=== PATIENT | female | born 1975 | race Caucasian/White ===

== ENCOUNTER → 2019-03-03 11:55 | Outpatient (CLI) | payer OTHER, SELFPAY ==
--- NOTE | 2019-03-03 | DI.MG.S_ITS ---
BILATERAL DIGITAL SCREENING MAMMOGRAM 3D/2D WITH CAD: 03/03/2019 CLINICAL: Routine screening. Family history of breast cancer. Comparison is made to exams dated: 01/14/2018 mammogram, 12/27/2016 mammogram, and 12/21/2015 mammogram - [facility]. The tissue of both breasts is heterogeneously dense. This may lower the sensitivity of mammography. Current study was also evaluated with a Computer Aided Detection (CAD) system. No significant masses, calcifications, or other findings are seen in either breast. There has been no significant interval change. IMPRESSION: NEGATIVE There is no mammographic evidence of malignancy. A 1 year screening mammogram is recommended. This exam was interpreted at Station ID: [id number]. NOTE: For mammograms, a report in lay terms will be sent to the patient. Approximately 15% of breast malignancies will not be visualized mammographically. In the management of a palpable breast mass, a negative mammogram must not discourage biopsy of a clinically suspicious lesion. Electronically Signed By: Veronica cunningham/mario:03/03/2019 18:04:24 letter sent: Normal Exam ACR BI-RADS Category 1: Negative 3341F
== END ==
PROVIDERS: PCP Family Medicine; Visit Provider Family Medicine
DX: Z12.31 Encounter for screening mammogram for malignant neoplasm of breast (principal); Z80.3 Family history of malignant neoplasm of breast
CPT/HCPCS: 77063; 77067

== ENCOUNTER → 2019-03-05 09:09 | Outpatient (CLI) | payer OTHER, SELFPAY ==
--- NOTE | 2019-03-05 09:00 | DI.ECHO.S_ITS ---
Echocardiogram Report + + :Name: MARCELLO SUAZO Study Date: 03/05/2019 Height: 62 in : :[facility] Weight: 123 lb : : Gender: Female BSA: 1.6 m2 : :: 1975 Age: 43 yrs BP: 122/80 mmHg: :Reason For Study: Chemotherapy F/U (ICD Code V67.2) : : Performed By: Tracy Hale : :Referring: RAUDEL ASENCIO : + + Interpretation Summary Normal sinus rhythm. Normal LV size and wall thickness. There is mild cardiomyopathy. Ejection fraction is 45-50 percent. Normal valves. Normal chamber sizes. No prior study available for comparison. Procedure: A two-dimensional transthoracic echocardiogram with color flow and Doppler was performed. The study quality was technically adequate. Comparison is made with the echocardiogram of 03-21-14. The patient was in normal sinus rhythm during the exam. Left Ventricle: The left ventricle is normal in size. There is normal left ventricular wall thickness. The ejection fraction is estimated to be 45-50%. Diastolic parameters suggest probable normal left ventricular diastolic function and normal filling pressures. Right Ventricle: The right ventricle grossly appears normal in size with probable normal systolic function. Atria: The left atrial size is normal. Right atrial size is normal. The interatrial septum is intact with no evidence for an atrial septal defect. Mitral Valve: The mitral valve is grossly normal. There is trace mitral regurgitation. Aortic Valve: The aortic valve is trileaflet. The aortic valve opens well. No aortic regurgitation is present. Tricuspid Valve: The tricuspid valve is normal in structure and function. There is a trace or physiologic amount of tricuspid regurgitation. Pulmonic Valve: The pulmonic valve is not well visualized. Great Vessels: The aortic root is normal size. The dimensions of the ascending aorta are normal. The IVC is of normal diameter and collapses greater than 50% with a sniff. This suggests a low right atrial pressure of 3 mm Hg. Pericardium/ Pleura There is no pericardial effusion. There is no pleural effusion. MMode/2D Measurements & Calculations LVIDd: 4.6 cm Ao root diam: 2.9 cm LVIDs: 3.7 cm Aortic Jxn: 2.3 cm FS: 20.6 % asc Aorta Diam: 2.5 cm EPSS: 1.4 cm IVSd: 0.76 cm LVPWd: 0.70 cm LV deng. diameter/BSA (cm/m^2): 3.0 LV sys. diameter/BSA (cm/m^2): 2.4 LA dimension: 3.1 cm RA long axis: 4.3 cm LA A2 area: 16.8 cm2 RA area: 13.7 cm2 LA A4 area: 14.0 cm2 RA vol: 37.4 ml LA length (vol): 4.8 cm RA : 24.1 ml/m2 LA vol: 41.2 ml IVC diam: 2.1 cm LA vol index: 26.5 ml/m2 RVDd major: 5.1 cm RVD1 (basal): 2.9 cm RVD2 (mid): 2.2 cm Doppler Measurements & Calculations Ao V2 max: 118.4 cm/sec MV E max rocky: 67.2 cm/sec Ao V2 mean: 82.5 cm/sec MV A max rocky: 68.8 cm/sec Ao max P.6 mmHg MV E/A: 0.98 Ao mean P.0 mmHg Med Peak E' Rocky: 7.8 cm/sec Ao V2 VTI: 28.4 cm E/E' med: 8.6 Lat Peak E' Rocky: 9.2 cm/sec E/E' lat: 7.3 E/e' average: 8.0 MV dec time: 0.27 sec MV P1/2t: 79.8 msec TR max rocky: 167.5 cm/sec MV P1/2t max rocky: 68.4 cm/sec TR max P.2 mmHg MVA(P1/2t): 2.8 cm2 PA V2 max: 51.6 cm/sec PA V2 mean: 37.1 cm/sec PA mean P.60 mmHg PA Accel Time: 0.26 sec _ Electronically signed by: Latia Pennington M.D. on Reading Physician:03/05/2019 10:57 AM
== END ==
PROVIDERS: PCP Family Medicine; Visit Provider Family Medicine
DX: C85.90 Non-Hodgkin lymphoma, unspecified, unspecified site (principal); C83.39 Diffuse large B-cell lymphoma, extranodal and solid organ sites; M85.851 Other specified disorders of bone density and structure, right thigh; Z78.0 Asymptomatic menopausal state; Z92.21 Personal history of antineoplastic chemotherapy; Z87.891 Personal history of nicotine dependence
CPT/HCPCS: 77080; 93306

== ENCOUNTER → 2019-03-26 09:11 | Outpatient (CLI) | payer OTHER, SELFPAY ==
--- NOTE | 2019-03-26 | DI.US.S_ITS ---
PROCEDURE: US THYROID INDICATIONS: THYROID NODULE TECHNIQUE: Real-time scanning was performed of the thyroid gland, with image documentation. COMPARISON: Outside Facility, , US SOFT TISSUE HEAD OR NECK, 04/13/2018, 10:51. [facility], US, THYROID, 07/01/2017, 10:02. FINDINGS: Right: Thyroid lobe measures 5.0 x 1.6 x 1.4 cm, and is homogeneous in echotexture. Left: Thyroid lobe measures 6.1 x 3.1 x 7 cm, and is homogenous in echotexture. Isthmus: 3.0 mm thick. Nodule number: 1 Location: Right mid to superior Size: 0.5 x 0.3 x 0.4 cm. Composition: Predominantly solid Echogenicity: Hypoechoic Shape: wider than tall. Margins: Smooth Echogenic foci: None Total points: 4 ACR TI-RADS category: Moderately suspicious Nodule number: 2 Location: Right mid lateral Size: 0.5 0.3 x 0.3 cm. Composition: Solid Echogenicity: Hypoechoic Shape: wider than tall. Margins: Smooth Echogenic foci: None Total points: 4 ACR TI-RADS category: Moderately suspicious Nodule number: 3 Location: Right mid lateral Size: 1.1 x 1.0 0.7 cm. Composition: Predominantly solid Echogenicity: Isoechoic Shape: Wider than tall Margins: Smooth Echogenic foci: Punctate internal echogenic foci. Total points: 6 ACR TI-RADS category: Moderately suspicious Nodule number: 4 Location: Right mid Size: 1.0 x 5.6 x 1.0 cm. Composition: Solid Echogenicity: Hypoechoic Shape: wider than tall. Margins: Smooth Echogenic foci: None Total points: 4 ACR TI-RADS category: Moderately suspicious Nodule number: 5 Location: Left lobe Size: 5.5 x 3.0 x 3.4 cm. Composition: Solid Echogenicity: Heterogeneous Shape: wider than tall. Margins: Lobulated Echogenic foci: Internal punctate echogenic foci Total points: 7 ACR TI-RADS category: Highly suspicious IMPRESSION: Bilateral thyroid nodules as above. Nodule # 5 has increased in size since the last outside ultrasound. Recommend sonographically directed fine needle aspiration biopsy. Recommend continued followup of the additional nodules as detailed below. ACR TI-RADS definitions and recommendations: TI-RADS 1 (benign): 0 points. FNA not needed. TI-RADS 2 (not suspicious): 2 points. FNA not needed. TI-RADS 3 (mildly suspicious): 3 points. * FNA if 2.5 cm or larger, follow up if 1.5 cm or larger (at 1, 3, and 5 years). TI-RADS 4 (moderately suspicious): 4-6 points. * FNA if 1.5 cm or larger, follow up if 1 cm or larger (at 1, 2, 3, and 5 years). TI-RADS 5 (highly suspicious): 7 points or more. * FNA if 1 cm or larger, follow up if 0.5 cm or larger (every year for 5 years). Dictated by: Modesto Pollard [facility] Interpreted: Kedar Murry MD on 03/26/2019 at 12:19 Approved by: Kedar Murry M.D. on 03/26/2019 at 23:45
== END ==
PROVIDERS: PCP Family Medicine; Visit Provider Family Medicine
DX: E04.2 Nontoxic multinodular goiter (principal)
CPT/HCPCS: 76536

== ENCOUNTER → 2019-04-19 09:36 | Outpatient (CLI) | payer OTHER, SELFPAY ==
--- NOTE | 2019-04-19 | DI.US.S_ITS ---
PROCEDURE: US FINE NEEDLE ASPIRATION INDICATIONS: THYROID NODULE TECHNIQUE: The indications, alternatives, benefits, risks, and complications of the procedure were explained to the patient. Written informed consent was obtained and placed in the chart. The thyroid region was examined sonographically and a site was chosen for ultrasound guided percutaneous sampling. The skin was prepared and draped in the usual fashion, and anesthetized with 1% lidocaine infiltrated from the skin down to the thyroid gland. Multiple passes were then performed, with contents emptied into an appropriate pathology specimen container. A bandage was applied to the area of access at completion of the study. COMPARISON: None. FINDINGS: Location(s) of lesion(s) sampled: Left lobe [place]: 25 and 22 gauge hypodermic needles. Number of passes: 6 Medications: 1% lidocaine for local anaesthesia. Complications: None. IMPRESSION: Successful ultrasound-guided thyroid nodule fine needle aspiration, with cytology results pending. Please see chart below for management recommendations based on cytology results. [facility] ReportingRecommendationsNon-diagnostic* Repeat US-guided FNA, with on-site cytology evaluation if possible. * Repeated non-diagnostic nodules without high suspicion US features: close observation vs surgical consult. * Consider surgery if nodule has high suspicion US features, grows >20% in 2 dimensions on followup, or patient has clinical risk factors for malignancy. Benign* If nodule has high suspicion US features: repeat US and FNA within 12 months. * If nodule has low to intermediate suspicion US features: repeat US at 12-24 months. If nodule grows (20% increase in at least 2 dimensions, with minimal increase of 2 mm or >50% change in volume), or development of new suspicious US features, then repeat FNA or continue followup. * If nodule has very low suspicion US features: followup US at >24 months. Atypia of undetermined significance, follicular lesion of undetermined significanceRepeat FNA, molecular testing, followup US, or surgical consult.Follicular neoplasm, suspicious for follicular neoplasmSurgical consult; also consider molecular testing. Suspicious for malignancySurgical consult.MalignantSurgical consult. Dictated by: Biju Michelle M.D. on 04/19/2019 at 17:15 Approved by: Biju Michelle M.D. on 04/19/2019 at 17:15
--- NOTE | 2019-04-19 | PATH_ITS ---
Note [facility] Accession Number: [id number] TESTS RESULT FLAG UNITS REF RANGE LAB Clinician Provided Cytology Information No. of containers..01 ThinPrep Vial No. of containers..10 Previously Prepared Cytology Slide LEFT THYROID DIAGNOSIS: 02 LEFT THYROID BENIGN. BETHESDA CATEGORY II. SPECIMEN CONSISTS OF BENIGN FOLLICULAR CELLS, HEMOSIDERIN-LADEN MACROPHAGES, COLLOID, AND BLOOD. THIS PATTERN IS CONSISTENT WITH A BENIGN FOLLICULAR NODULE. Pathologist ICD10: 02 E04.1 01 NODULE NUMBER: 5 LOCATION: LEFT LOBE SIZE: 5.5 X 3.0 X 3.4 CM NODULE # 5 HAS INCREASED IN SIZE SINCE THE LAST OUTSIDE ULTRASOUND. RECOMMEND SONOGRPHICALLY DIRECT FINE NEEDLE ASPIRATION BIOPSY. 02 Flora Rosenbaum MD, Pathologist NPI- [id number] John Molina, Employment Officer ([facility]) 01 30 CC, PINK, CLEAR RECEIVED: 5 ALCOHOL FIXED AND 5 QUICK STAINED SLIDES WITH 1 RNA VIAL FOR FURTHER TESTING. /VDU FLAG LEGEND: L-Low Normal,H-High Normal,LL-Alert Low,HH-Alert High <-Panic Low,>-Panic High,A-Abnormal,AA-Critical Abnormal Performed at: 01 =Z [facility] [address] [address], [place] [address] Kaden Graves MD, 02 LWA [facility] [address] [place] [id number] Flora Rosenbaum MD, Performed at: [address] [address], [place], [place] [id number] MD Kaden Graves MD Phone: [phone]
== END ==
PROVIDERS: PCP Family Medicine; Visit Provider Family Medicine
DX: E04.1 Nontoxic single thyroid nodule (principal)
CPT/HCPCS: 10005

== ENCOUNTER → 2020-06-16 13:39 | Outpatient (CLI) | payer BC, SELFPAY ==
--- NOTE | 2020-06-16 13:50 | DI.MG.S_ITS ---
Patient Name: MARCELLO SUAZO date: 1975 Sex: F Attending Physician: Gonzalo Indications: Date: 06/16/2020 13:57 At the request of: RAUDEL ASENCIO Procedure: MM screening mammo BI BILATERAL DIGITAL SCREENING MAMMOGRAM 3D/2D WITH CAD: 06/16/2020 CLINICAL: Routine screening. Family history of breast cancer. Comparison is made to exams dated: 03/03/2019 mammogram, 01/14/2018 mammogram, and 12/27/2016 mammogram - [facility]. The tissue of both breasts is heterogeneously dense. This may lower the sensitivity of mammography. Current study was also evaluated with a Computer Aided Detection (CAD) system. No significant masses, calcifications, or other findings are seen in either breast. There has been no significant interval change. IMPRESSION: NEGATIVE There is no mammographic evidence of malignancy. A 1 year screening mammogram is recommended. This exam was interpreted at Station ID: [id number]. NOTE: For mammograms, a report in lay terms will be sent to the patient. Approximately 15% of breast malignancies will not be visualized mammographically. In the management of a palpable breast mass, a negative mammogram must not discourage biopsy of a clinically suspicious lesion. Electronically Signed By: Bijan bernard/mario:06/16/2020 14:12:56 letter sent: Normal Exam ACR BI-RADS Category 1: Negative 3341F
== END ==
PROVIDERS: PCP Family Medicine; Referring Provider Family Medicine; Visit Provider Family Medicine
DX: Z12.31 Encounter for screening mammogram for malignant neoplasm of breast (principal); Z80.3 Family history of malignant neoplasm of breast
CPT/HCPCS: 77063; 77067

== ENCOUNTER → 2020-12-14 10:27 | Outpatient (CLI) | payer BC, OTHER, SELFPAY ==
--- NOTE | 2020-12-14 | DI.RAD.S_ITS ---
PROCEDURE: XR HAND LT MIN 3V INDICATIONS: bilateral hand pain TECHNIQUE: 3 views of the hand(s) acquired. COMPARISON: None. FINDINGS: Bones: No fracture. Scattered degenerative subchondral sclerosis and spurring. Soft tissues: No suspicious soft tissue calcifications. Dystrophic calcification versus small loose body projects adjacent to the ulnar styloid. IMPRESSION: Mild degenerative changes. If the patient's pain or other symptoms persist, consider further evaluation with MRI Dictated by: Biju Michelle M.D. on 12/14/2020 at 11:41 Approved by: Biju Michelle M.D. on 12/14/2020 at 11:43
--- NOTE | 2020-12-14 | DI.RAD.S_ITS ---
PROCEDURE: XR HAND RT MIN 3V INDICATIONS: bilateral hand pain TECHNIQUE: 3 views of the hand(s) acquired. COMPARISON: None. FINDINGS: Bones: No fracture. 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 No definite marginal lucencies seen. Soft tissues: No suspicious soft tissue calcifications. IMPRESSION: Mild degenerative changes as above. Dictated by: Biju Michelle M.D. on 12/14/2020 at 11:39 Approved by: Biju Micehlle M.D. on 12/14/2020 at 11:41
== END ==
PROVIDERS: PCP Family Medicine; Referring Provider Family Medicine; Visit Provider Family Medicine
DX: M79.642 Pain in left hand (principal); M79.641 Pain in right hand
CPT/HCPCS: 73130

== ENCOUNTER 2021-03-20 13:40 | Day surgery (SDC) | payer BC, OTHER, SELFPAY ==
[2021-03-20] VITALS (8 sets, daily range): BP systolic 113–137; BP diastolic 73–91; PULSE 50–69; RESP 13–16; TEMP 36.2–37; O2SAT 92–100; BMI 24.5
--- NOTE | 2021-03-20 | PATH_ITS ---
[facility] Accession Number: [id number] . 01 Material submitted: . PART A: colon - COLON POLYPS AT 20CM X4 PART B: colon - COLON POLYP AT 5CM . 02 Diagnosis: A. Colon, Polyps at 20 cm x4, Biopsies: Hyperplastic polyps. . B. Colon, Polyp at 5 cm, Biopsy: Hyperplastic polyp. MRV 03/23/2021 1318 Local . 02 Electronically signed: . Flora Rosenbaum MD, Pathologist NPI- [id number] . 01 Gross description: . A. Received in formalin, labeled colon polyp at 20 cm and consists of four garcia-pink polyps ranging from 0.3-1.0 cm. The margins are inked blue. The larger polyps are bisected and the specimen is entirely submitted in cassette A1. B. Received in formalin, labeled colon polyp at 5 cm and consists of a 0.3 x 0.2 x 0.2 cm garcia-pink fragment of soft tissue which is entirely submitted in cassette B1. ([id number]) /MRV 03/21/2021 1031 Local . 02 Pathologist provided ICD-10: K63.5 . 02 CPT . 171960, [id number] Performed at: 01 [facility] [address], [place], [place] [id number] MD Kaden Graves MD Phone: [phone] Performed at: 02 [facility] [address] [place], [place] [id number] MD Flora Rosenbaum MD Phone: [phone]
[2021-03-20 14:06] LABS: COVID19 -Nasal RAPID Negative (Negative)
[2021-03-20] MEDS: SODIUM CHLORIDE 0.9% 1,000 ML 200 ML IV (14:32)
--- NOTE | 2021-03-20 14:41 | PM.PREOP ---
Pre-operative Note COVID-19 COVID-19 status: Negative Result date/Date tested (Pos, Neg/Pending): 03/20/21 Interval Note History & Physical reviewed/Exam performed by Physician: Yes Changes to H&P: No ASA Class (for procedural sedation): I
[2021-03-20] MEDS: MIDAZOLAM 5 MG/5 ML VIAL IV ×2 (14:53→15:36)
[2021-03-20] MEDS: fentaNYL 250 MCG/5 ML INJ IV (14:54)
--- NOTE | 2021-03-20 15:35 | PM.OP.ENDO ---
Operative Date/Time/Diagnoses Date of procedure: 03/20/21 Time of procedure: 15:35 Pre-op diagnosis: Rectal bleeding Post-op diagnosis: other (5 polyps in the rectum with stigmata of recent bleeding, all removed) Procedure & Clinicians Study performed: Colonoscopy Procedural sedation performed by the endoscopist Polypectomy with hot snare x 5 Same procedure as scheduled: Yes Indications: Rectal bleeding Surgeon: Pilar Gan Procedure Notes SCOAP/Timeout: Performed Procedure in detail: The patient was brought to the room and placed in left lateral decubitus position with all bony prominences padded. A time-out was performed and then the patient was given procedural sedation starting with 4 mg of Versed and 100 mcg of fentanyl. An additional 2 mg of Versed and 100 micro g of fentanyl were given during the rest of the procedure. Vitals were monitored throughout the procedure and remained stable. Once adequately sedated, the procedure was begun. A rectal exam was performed revealing no abnormalities. The colonoscope was then introduced to the rectum and advanced to the cecum in the usual fashion. The cecum was identified by the appendiceal orifice, the mucosal tri-fold, and the ileocecal valve. The scope was then retracted while rotating side to side and examining each mucosal fold. The patient had moderate diverticulosis, especially in the descending and sigmoid colon, and multiple inflammatory appearing polyps with stigmata of recent bleeding. Four polyps were removed from the 20 cm level in the rectum, each polyp was 5-10 mm, removed with hot snare, with good hemostasis. One smaller polyp was removed at 5 cm from the anal verge in the rectum, also with hot snare. At the conclusion of the procedure retroflexion was performed and small grade 2-3 internal hemorrhoids without stigmata of bleeding were seen. The scope was then withdrawn from the rectum the procedure was concluded. The patient tolerated the procedure well and was transferred to the PACU in stable condition. Scope withdrawal time: 19 Sedation minutes: 40 Findings: diverticulosis and polyp Specimen(s): other (Polyp x5) Complications: none Impression: Moderate diverticulosis, multiple inflammatory appearing polyps removed and sent for pathology Post-procedure Recommendations: High fiber diet and Other recommendation (Recommended follow-up will depend on the pathology results from the polyps that were removed) Follow up: as needed Disposition: PACU
== END 2021-03-20 16:35 | disposition home or self-care (01) ==
PROVIDERS: PCP Family Medicine; Referring Provider Surgery; Visit Provider Surgery
PROC: 0DJD8ZZ Inspection of Lower Intestinal Tract, Via Natural or Artificial Opening Endoscopic (ICD-10-PCS; CPT 45378; principal; 2021-03-20 15:15)
DX: K62.5 Hemorrhage of anus and rectum (principal); K57.30 Diverticulosis of large intestine without perforation or abscess without bleeding; Z20.822 Contact with and (suspected) exposure to COVID-19; K64.1 Second degree hemorrhoids; K62.1 Rectal polyp; K63.5 Polyp of colon
CPT/HCPCS: 45385; 87635; 99152; 99153; J2250; J3010

== ENCOUNTER → 2023-03-06 11:26 | Outpatient (CLI) | payer BC, OTHER, SELFPAY ==
--- NOTE | 2023-03-06 | DI.MG.S_ITS ---
BILATERAL DIGITAL SCREENING MAMMOGRAM 3D/2D WITH CAD: 03/06/2023 CLINICAL: Routine screening. Family history of breast cancer. Comparison is made to exams dated: 06/16/2020 mammogram, 03/03/2019 mammogram, and 01/14/2018 mammogram - [facility]. Both breasts are heterogeneously dense, which may obscure small masses (category c / 51-75% glandular tissue). Current study was also evaluated with a Computer Aided Detection (CAD) system. No significant masses, calcifications, or other findings are seen in either breast. There has been no significant interval change. IMPRESSION: NEGATIVE There is no mammographic evidence of malignancy. A 1 year screening mammogram is recommended. Based on the Tyrer Cuzick model (a risk assessment model) the patient's lifetime risk is 10.7% and her 10 year risk is 2.3%. According to the ACR, ACS, and NCCN guidelines, an annual breast MRI exam along with mammogram is recommended if the patient's lifetime risk is 20% or greater. This exam was interpreted at Station ID: [id number]. NOTE: For mammograms, a report in lay terms will be sent to the patient. Approximately 15% of breast malignancies will not be visualized mammographically. In the management of a palpable breast mass, a negative mammogram must not discourage biopsy of a clinically suspicious lesion. Electronically Signed By: Shalom pereyra/mario:03/06/2023 12:06:06 letter sent: Normal Exam ACR BI-RADS Category 1: Negative 3341F
== END ==
PROVIDERS: PCP Family Medicine; Referring Provider Family Medicine; Visit Provider Family Medicine
DX: Z12.31 Encounter for screening mammogram for malignant neoplasm of breast (principal); Z80.3 Family history of malignant neoplasm of breast
CPT/HCPCS: 77063; 77067

== ENCOUNTER → 2023-10-14 09:37 | Outpatient (CLI) | payer OTHER, BC, SELFPAY ==
--- NOTE | 2023-10-14 | DI.US.S_ITS ---
PROCEDURE: US PELVIC COMPLETE INDICATIONS: DYSPARUNIA TECHNIQUE: Real-time scanning was performed of the pelvic organs, with image documentation. Additional endovaginal scanning was necessary due to incomplete visualization of the adnexal and endometrial structures by transabdominal scanning. COMPARISON: [facility], , PELVIC COMPLETE, 09/04/2017, 10:57. FINDINGS: Uterus: Uterus is retroverted and normal in size at 5.2 x 3.3 x 4.7 cm. The myometrium is heterogeneous. The endometrium measures 4 mm combined thickness. No uterine fibroids. Ovaries: The right ovary measures 2.3 x 0.9 x 1.3 cm, with a calculated ovarian volume of 1.4 cc. The left ovary measures 1.6 x 1.1 x 1.1 cm, with a calculated ovarian volume of 1.0 cc. The ovaries have a normal sonographic appearance. Less than 12 follicles can be seen in each ovary. No adnexal masses are seen. Other: No pathologic free abdominal or pelvic fluid. IMPRESSION: No cause for patient's symptoms is identified. Unremarkable pelvic ultrasound. We strive to produce accurate, complete, and clear reports of imaging services. To assist us in improving patient care, this report was composed using standard report templates and voice recognition software. Therefore, it may contain abnormal punctuation, insertions and/or omissions. Occasional wrong-word or sound-alike substitutions may occur. Though we review the report and make efforts to correct it, we do recommend that the report be read carefully in proper context to recognize any text inaccuracies. Dictated by: Booker Reed M.D. on 10/14/2023 at 12:09 Approved by: Booker Reed M.D. on 10/14/2023 at 12:10
== END ==
PROVIDERS: Family Provider Family Medicine; PCP Family Medicine; Referring Provider Family Medicine; Visit Provider Family Medicine
DX: N94.10 Unspecified dyspareunia (principal); R10.2 Pelvic and perineal pain
CPT/HCPCS: 76856

== ENCOUNTER → 2024-04-30 11:11 | Outpatient (CLI) | payer BC, SELFPAY ==
--- NOTE | 2024-04-30 11:12 | DI.MG.S_ITS ---
BILATERAL DIGITAL SCREENING MAMMOGRAM 3D/2D WITH CAD: 04/30/2024 CLINICAL: Routine screening. Family history of breast cancer. Comparison is made to exams dated: 03/06/2023 mammogram, 06/16/2020 mammogram, and 03/03/2019 mammogram - [facility]. Both breasts are heterogeneously dense, which may obscure small masses (category c / 51-75% glandular tissue). Current study was also evaluated with a Computer Aided Detection (CAD) system. No significant masses, calcifications, or other findings are seen in either breast. There has been no significant interval change. IMPRESSION: NEGATIVE There is no mammographic evidence of malignancy. A 1 year screening mammogram is recommended. Based on the Tyrer Cuzick model (a risk assessment model) the patient's lifetime risk is 10.6% and her 10 year risk is 2.4%. According to the ACR, ACS, and NCCN guidelines, an annual breast MRI exam along with mammogram is recommended if the patient's lifetime risk is 20% or greater. This exam was interpreted at Station ID: [id number]. NOTE: For mammograms, a report in lay terms will be sent to the patient. Approximately 15% of breast malignancies will not be visualized mammographically. In the management of a palpable breast mass, a negative mammogram must not discourage biopsy of a clinically suspicious lesion. Electronically Signed By: Kendall rockwell/mario:04/30/2024 12:21:59 letter sent: Normal Exam ACR BI-RADS Category 1: Negative 3341F
== END ==
LOC: MAMMO 11:11
PROVIDERS: Family Provider Family Medicine; PCP Family Medicine; Referring Provider Family Medicine; Visit Provider Family Medicine
DX: Z12.31 Encounter for screening mammogram for malignant neoplasm of breast (principal); Z80.3 Family history of malignant neoplasm of breast; R92.333 Mammographic heterogeneous density, bilateral breasts
CPT/HCPCS: 77063; 77067

== ENCOUNTER → 2024-08-02 15:27 | Outpatient (CLI) | payer BC, SELFPAY ==
--- NOTE | 2024-08-02 15:29 | DI.RAD.S_ITS ---
PROCEDURE: XR SHOULDER RT MIN 2V INDICATIONS: R SHOULDER PAIN TECHNIQUE: Three views of the right shoulder were acquired. COMPARISON: None. FINDINGS: Bones: There are no osseous abnormalities. Acromioclavicular and glenohumeral joints: Normal in width and alignment without arthritic change Soft tissues: No soft tissue swelling, calcification or mass. IMPRESSION: Normal shoulder Dictated by: Jose Parker M.D. on 08/03/2024 at 10:35 Approved by: Jose Parker M.D. on 08/03/2024 at 10:36
== END ==
PROVIDERS: Family Provider Family Medicine; PCP Family Medicine; Referring Provider Family Medicine; Visit Provider Family Medicine
DX: M25.511 Pain in right shoulder (principal); G89.29 Other chronic pain
CPT/HCPCS: 73030

== ENCOUNTER → 2025-01-17 09:45 | Outpatient (CLI) | payer OTHER, BC, SELFPAY ==
--- NOTE | 2025-01-17 09:50 | DI.US.S_ITS ---
PROCEDURE: US CAROTID DOPPLER BI INDICATIONS: Dizziness TECHNIQUE: Color and pulse Doppler interrogation was performed of both carotid systems, with image documentation and velocity measurements. COMPARISON: None. FINDINGS: Stenosis calculations are based on SRU ([employer] in Ul[employer]) criteria. Right side: Brachial blood pressure: 130/79 mm Hg. Common carotid artery peak systolic velocity: 78 cm/sec. Internal carotid artery peak systolic velocity: 90 cm/sec. Internal carotid artery end diastolic velocity: 42 cm/sec. External carotid artery peak systolic velocity: 67 cm/sec. ICA/CCA peak systolic ratio: 1.2 . Aldana scale imaging description: No significant atherosclerotic plaque. Percent internal carotid artery stenosis: Normal . Vertebral artery: Flow direction is antegrade. Left side: Brachial blood pressure: 129/80 mm Hg. Common carotid artery peak systolic velocity: 66 cm/sec. Internal carotid artery peak systolic velocity: 91 cm/sec. Internal carotid artery end diastolic velocity: 44 cm/sec. External carotid artery peak systolic velocity: 77 cm/sec. ICA/CCA peak systolic ratio: 1.4 . Aldana scale imaging description: No significant atherosclerotic plaque identified Percent internal carotid artery stenosis: Normal . Vertebral artery: Flow direction is antegrade. IMPRESSION: 1. In the right carotid artery, there is no significant stenosis stenosis based on peak systolic velocity criteria. 2. In the left carotid artery, there is no significant stenosis based on peak systolic velocity criteria. 3. Antegrade vertebral arteries. Dictated by: Bijan Ramos M.D. on 01/17/2025 at 16:47 Approved by: Bijan Ramos M.D. on 01/17/2025 at 16:49
--- NOTE | 2025-01-17 09:50 | DI.RAD.S_ITS ---
PROCEDURE: XR SHOULDER RT MIN 2V INDICATIONS: R SHOULDER PAIN TECHNIQUE: Three views of the right shoulder were acquired. COMPARISON: [facility], , XR SHOULDER RT MIN 2V, 08/02/2024, 15:27. FINDINGS: Bones: Minor sclerosis and cyst formation in the sub tuberosity region the proximal humerus is noted. Acromioclavicular and glenohumeral joints: Normal in width and alignment without arthritic change Soft tissues: No soft tissue swelling, calcification or mass. IMPRESSION: No significant abnormality. Dictated by: Jose Parker M.D. on 01/17/2025 at 10:51 Approved by: Jose Parker M.D. on 01/17/2025 at 10:52
== END ==
PROVIDERS: Family Provider Family Medicine; PCP Family Medicine; Referring Provider Family Medicine; Visit Provider Family Medicine
DX: R42 Dizziness and giddiness (principal); Z82.3 Family history of stroke; M25.511 Pain in right shoulder; G89.29 Other chronic pain
CPT/HCPCS: 73030; 93880